=== PATIENT | male | born 1980 | race Caucasian/White ===

== ENCOUNTER 2017-04-15 17:08 | Emergency (ER) | payer SELFPAY ==
[~2017-04-15] VITALS: Ht 175.3 cm; Wt 103.4 kg
[~2017-04-15 17:08] MED LIST: METR-1 PO; ONDA1TAB16 PO; PROM25TA5 PO; ZOFR4TAB3 SL
[2017-04-15 17:11] VITALS: BP 213/132; PULSE 82; RESP 16; TEMP 98; O2SAT 97
[2017-04-15] MEDS ORDERED: SODIUM CHLOR 0.9% 1000 ML INJ 1,000 ML IV SCH (17:15)
[2017-04-15] MEDS ORDERED: ONDANSETRON HCL 4 MG/2 ML VIAL IVP ONE (17:15)
[2017-04-15] MEDS ORDERED: SODIUM CHLORIDE 0.9% FLUSH 10 ML FLUSH IV FLUSH PRN (17:15)
[2017-04-15] MEDS ORDERED: KETOROLAC TROMETHAMINE 30 MG/ML (IVP) VIAL IVP ONE (17:15)
--- NOTE | 2017-04-15 17:24 | PD ---
HPI Chief Complaint: Flank/Kidney Pain Time Seen by Provider: 17:14 Travel History International Travel<30 days: No Contact w/Intl Traveler<30days: No Traveled to known affect area: No History of Present Illness HPI This is a 36-year-old male with a history of diverticulitis and kidney stones who presents for flank pain. He states half an hour ago, he developed left flank pain. It does not radiate. Mild associated nausea without vomiting. He has only urinated a few drops since this happened. No hematuria. No recent fever, chills, cough, congestion, vomiting, diarrhea. He had been otherwise well recently. He states that this feels similar to prior kidney stones. No focal weakness, numbness, tingling, saddle paresthesias, bowel or bladder dysfunction. No fevers, chills, IV drug abuse. Symptoms are moderate in severity. Onset gradual. No prior treatment. No alleviating or aggravating factors. PFSH Past Medical History Hx Anticoagulant Therapy: No Asthma: No Blood Disorders: No Heart Rhythm Problems: No Cancer: No Cardiovascular Problems: No High Cholesterol: Yes Chemotherapy: No Chest Pain: No Congestive Heart Failure: No COPD: No Cerebrovascular Accident: No Diabetes: No Diminished Hearing: No Diverticulitis: Yes Endocrine: No GERD: No Genitourinary: No Headaches: No Hepatitis: No Hiatal Hernia: No Hypertension: No Immune Disorder: No Implanted Vascular Access Dvce: No Kidney Stones: Yes Musculoskeletal: No Neurologic: No Psychiatric: No Reproductive: No Respiratory: No Immunizations Current: No Migraines: No Myocardial Infarction: No Seizures: No Sleep Apnea: No Ulcer: No Influenza Vaccination: No Past Surgical History Appendectomy: No Cholecystectomy: No Neurologic Surgery: No Other Surgery: Yes (CYST REMOVED FROM NECK) Social History Alcohol Use: Yes (12 pack per week) Tobacco Use: Yes (1 ppd) Substance Use: Yes (POT) Allergies-Medications (Allergen,Severity, Reaction): Coded Allergies: diatrizoate meglumine (Unverified Allergy, Intermediate, Rash, 04/15/17) gadobenic acid (Unverified Allergy, Intermediate, Rash, 04/15/17) gadodiamide (Unverified Allergy, Intermediate, Rash, 04/15/17) gadoteridol (Unverified Allergy, Intermediate, Rash, 04/15/17) iodixanol (Unverified Allergy, Intermediate, Rash, 04/15/17) iohexol (Unverified Allergy, Intermediate, Rash, 04/15/17) Reported Meds & Prescriptions Reported Meds & Active Scripts Active Keflex (Cephalexin) 500 Mg Cap 500 Mg PO Q12H 7 Days Flomax (Tamsulosin HCl) 0.4 Mg Cap 0.4 Mg PO DAILY Zofran Odt (Ondansetron Odt) 4 Mg Tab 4 Mg SL Q8HR PRN Fisher (Hydrocodone-Acetaminophen) 5 Mg-325 Mg Tab 1 Tab PO Q6H PRN Review of Systems Except as stated in HPI: all other systems reviewed are Neg Physical Exam Narrative GENERAL: Alert, well nourished, male patient resting on the bed. Vital Signs reviewed SKIN: Focused skin assessment warm/dry. HEAD: Atraumatic. Normocephalic. EYES: Pupils equal and round. No scleral icterus. No injection or drainage. ENT: No nasal bleeding or discharge. Mucous membranes pink and moist. NECK: Trachea midline. No JVD. Spontaneous, painless full range of motion with no meningismus CARDIOVASCULAR: Regular rate and rhythm. No murmur appreciated. Extremities warm and well perfused with bounding peripheral pulses RESPIRATORY: No accessory muscle use. Clear to auscultation. Breath sounds equal bilaterally. Breathing easily and speaking in full sentences GASTROINTESTINAL: Abdomen soft, non-tender, nondistended. Normal bowel sounds. No rigid, rebound, guarding. No CVA tenderness. MUSCULOSKELETAL: No obvious deformities. No clubbing. No cyanosis. No edema. Compartments are soft NEUROLOGICAL: Awake and alert. No obvious cranial nerve deficits. Motor grossly within normal limits. Normal speech. Sensation intact. Normal gait Data Data Last Documented VS Vital Signs Date Time Temp Pulse Resp B/P (MAP) Pulse Ox O2 Delivery O2 Flow Rate FiO2 04/15/17 19:37 102 20 194/129 (150) 95 04/15/17 18:05 Room Air 04/15/17 17:11 98.0 Orders Orders Complete Blood Count With Diff (04/15/17 17:15) Comprehensive Metabolic Panel (04/15/17 17:15) Lipase (04/15/17 17:15) Urinalysis - C+S If Indicated (04/15/17 17:15) Ct Abd/Pel W/O Iv Contrast (04/15/17 17:15) Iv Access Insert/Monitor (04/15/17 17:15) Ondansetron Inj (Zofran Inj) (04/15/17 17:15) Sodium Chlor 0.9% 1000 Ml Inj (Ns 1000 M (04/15/17 17:15) Sodium Chloride 0.9% Flush (Ns Flush) (04/15/17 17:15) Ketorolac Inj (Toradol Inj) (04/15/17 17:15) Morphine Inj (Morphine Inj) (04/15/17 18:00) Urine Culture (04/15/17 18:10) Morphine Inj (Morphine Inj) (04/15/17 19:00) Clonidine (Catapres) (04/15/17 19:00) Ondansetron Inj (Zofran Inj) (04/15/17 19:15) Ed Discharge Order (04/15/17 20:15) Labs Laboratory Tests Test 04/15/17 17:15 04/15/17 18:10 White Blood Count 10.2 TH/MM3 Red Blood Count 5.23 MIL/MM3 Hemoglobin 15.8 GM/DL Hematocrit 46.2 % Mean Corpuscular Volume 88.4 FL Mean Corpuscular Hemoglobin 30.2 PG Mean Corpuscular Hemoglobin Concent 34.2 % Red Cell Distribution Width 11.5 % Platelet Count 314 TH/MM3 Mean Platelet Volume 8.1 FL Neutrophils (%) (Auto) 53.4 % Lymphocytes (%) (Auto) 37.2 % Monocytes (%) (Auto) 7.6 % Eosinophils (%) (Auto) 1.2 % Basophils (%) (Auto) 0.6 % Neutrophils # (Auto) 5.4 TH/MM3 Lymphocytes # (Auto) 3.8 TH/MM3 Monocytes # (Auto) 0.8 TH/MM3 Eosinophils # (Auto) 0.1 TH/MM3 Basophils # (Auto) 0.1 TH/MM3 CBC Comment DIFF FINAL Differential Comment Blood Urea Nitrogen 9 MG/DL Creatinine 1.00 MG/DL Random Glucose 106 MG/DL Total Protein 8.0 GM/DL Albumin 4.0 GM/DL Calcium Level 9.1 MG/DL Alkaline Phosphatase 101 U/L Aspartate Amino Transf (AST/SGOT) 16 U/L Alanine Aminotransferase (ALT/SGPT) 30 U/L Total Bilirubin 0.3 MG/DL Sodium Level 140 MEQ/L Potassium Level 3.7 MEQ/L Chloride Level 105 MEQ/L Carbon Dioxide Level 28.9 MEQ/L Anion Gap 6 MEQ/L Estimat Glomerular Filtration Rate 85 ML/MIN Lipase 148 U/L Urine Collection Type CLEAN CATCH Urine Color RED Urine Turbidity CLOUDY Urine pH 5.5 Urine Specific [place] 1.025 Urine Protein 30 mg/dL Urine Glucose (UA) NEG mg/dL Urine Ketones NEG mg/dL Urine Occult Blood LARGE Urine Nitrite NEG Urine Bilirubin NEG Urine Urobilinogen 0.2 MG/DL Urine Leukocyte Esterase NEG Urine RBC INNUM /hpf Urine WBC 9-14 /hpf Urine Squamous Epithelial Cells 6-8 /hpf Urine Yeast (Budding) MOD Microscopic Urinalysis Comment CULTURE INDICATED Urine Collection Time 18:10 MDM Medical Decision Making Medical Screen Exam Complete: Yes Emergency Medical Condition: Yes Medical Record Reviewed: Yes Interpretation(s) Last 24 hours Impressions Abdomen/Pelvis CT 04/15/17 1715 Signed Impressions: Service Date/Time: April 17:36 - CONCLUSION: 2 mm left ureteral calculus at the level of the L3-4 disc space causing mild hydronephrosis of the left kidney. Edvin Norris MD Laboratory Tests Test 04/15/17 17:15 04/15/17 18:10 White Blood Count 10.2 TH/MM3 Red Blood Count 5.23 MIL/MM3 Hemoglobin 15.8 GM/DL Hematocrit 46.2 % Mean Corpuscular Volume 88.4 FL Mean Corpuscular Hemoglobin 30.2 PG Mean Corpuscular Hemoglobin Concent 34.2 % Red Cell Distribution Width 11.5 % Platelet Count 314 TH/MM3 Mean Platelet Volume 8.1 FL Neutrophils (%) (Auto) 53.4 % Lymphocytes (%) (Auto) 37.2 % Monocytes (%) (Auto) 7.6 % Eosinophils (%) (Auto) 1.2 % Basophils (%) (Auto) 0.6 % Neutrophils # (Auto) 5.4 TH/MM3 Lymphocytes # (Auto) 3.8 TH/MM3 Monocytes # (Auto) 0.8 TH/MM3 Eosinophils # (Auto) 0.1 TH/MM3 Basophils # (Auto) 0.1 TH/MM3 CBC Comment DIFF FINAL Differential Comment Blood Urea Nitrogen 9 MG/DL Creatinine 1.00 MG/DL Random Glucose 106 MG/DL Total Protein 8.0 GM/DL Albumin 4.0 GM/DL Calcium Level 9.1 MG/DL Alkaline Phosphatase 101 U/L Aspartate Amino Transf (AST/SGOT) 16 U/L Alanine Aminotransferase (ALT/SGPT) 30 U/L Total Bilirubin 0.3 MG/DL Sodium Level 140 MEQ/L Potassium Level 3.7 MEQ/L Chloride Level 105 MEQ/L Carbon Dioxide Level 28.9 MEQ/L Anion Gap 6 MEQ/L Estimat Glomerular Filtration Rate 85 ML/MIN Lipase 148 U/L Urine Collection Type CLEAN CATCH Urine Color RED Urine Turbidity CLOUDY Urine pH 5.5 Urine Specific [place] 1.025 Urine Protein 30 mg/dL Urine Glucose (UA) NEG mg/dL Urine Ketones NEG mg/dL Urine Occult Blood LARGE Urine Nitrite NEG Urine Bilirubin NEG Urine Urobilinogen 0.2 MG/DL Urine Leukocyte Esterase NEG Urine RBC INNUM /hpf Urine WBC 9-14 /hpf Urine Squamous Epithelial Cells 6-8 /hpf Urine Yeast (Budding) MOD Microscopic Urinalysis Comment CULTURE INDICATED Urine Collection Time 18:10 Differential Diagnosis Nephrolithiasis, UTI, pyelonephritis, diverticulitis, musculoskeletal pain Narrative Course IV access was established. Labs, imaging were performed. Patient was given IV fluids, nausea and pain medication with improvement in his symptoms. Patient states that he is not typically hypertensive. He has had normal outpatient blood pressures within the last 2 months. He was given a dose of clonidine for hypertension in the emergency department with improvement in BP to 140/82. I do not feel he needs a prescription for outpatient antihypertensives. Upon reexamination 8:15 PM: He is resting comfortably on the bed, drinking fluids without difficulty. He is feeling much better and is eager to be discharged. We discussed plan for discharge with supportive care, Zofran, Keflex, ibuprofen , Fisher, Flomax and close outpatient follow-up with primary physician and urology. Patient understands the importance of close outpatient follow-up. He understands he may require further testing and treatment as an outpatient. He understands strict return indications. He is comfortable with this plan and eager to go home. Diagnosis Primary Impression: Left nephrolithiasis Referrals: Sky Christiansen MD 1 week Patient Instructions: General Instructions, Kidney Stones (DC), Narcotic given in the ED Additional Instructions: Drink plenty of water to stay well hydrated. Take ibuprofen with food for pain. Take Flomax as directed. Take Fisher as needed for severe pain. No alcohol or driving after this medication. Use Zofran for nausea. Follow-up with urologist. Return with fever, vomiting, uncontrolled pain. Med/Other Pt SpecificInfo: Prescription(s) given Scripts Cephalexin (Keflex) 500 Mg Cap 500 MG PO Q12H for Infection for 7 Days, #14 CAP 0 Refills Prov: Amber Dawkins MD 04/15/17 Tamsulosin (Flomax) 0.4 Mg Cap 0.4 MG PO DAILY for Manage Prostate Problems, #7 CAP 0 Refills Prov: Amber Dawkins MD 04/15/17 Ondansetron Odt (Zofran Odt) 4 Mg Tab 4 MG SL Q8HR Y for Nausea/Vomiting, #12 TAB 0 Refills Prov: Amber Dawkins MD 04/15/17 Hydrocodone-Acetaminophen (Fisher) 5 Mg-325 Mg Tab 1 TAB PO Q6H Y for PAIN, #12 TAB 0 Refills Prov: Amber Dawkins MD 04/15/17 Disposition: 01 DISCHARGE HOME Condition: Stable Amber Dawkins MD Apr 15, 2017 17:24
[2017-04-15 17:32] LABS: AUTOMATED NEUTROPHIL # 5.4 TH/MM3 (1.8-7.7); BASOPHIL # 0.1 TH/MM3 (0-0.2); BASOPHIL % 0.6 % (0.0-2.0); EOSINOPHIL # 0.1 TH/MM3 (0-0.4); EOSINOPHIL % 1.2 % (0.0-4.0); HEMATOCRIT 46.2 % (39.0-51.0); HEMOGLOBIN 15.8 GM/DL (13.0-17.0); LYMPH % 37.2 % (9.0-44.0); LYMPHOCYTE # 3.8 TH/MM3 (1.0-4.8); MEAN CELL VOLUME 88.4 FL (80.0-100.0); MEAN CORPUSCULAR HEMOGLOBIN 30.2 PG (27.0-34.0); MEAN CORPUSCULAR HGB CONC 34.2 % (32.0-36.0); MEAN PLATELET VOLUME 8.1 FL (7.0-11.0); MONO % 7.6 % (0.0-8.0); MONOCYTE # 0.8 TH/MM3 (0-0.9); NEUT % 53.4 % (16.0-70.0); PLATELET COUNT 314 TH/MM3 (150-450); RED BLOOD COUNT 5.23 MIL/MM3 (4.50-5.90); RED CELL DISTRIBUTION WIDTH 11.5 % (11.6-17.2); WHITE BLOOD COUNT 10.2 TH/MM3 (4.0-11.0)
[2017-04-15 17:42] LABS: CHLORIDE 105 MEQ/L (98-107); SODIUM (NA) 140 MEQ/L (136-145)
[2017-04-15 17:46] LABS: BICARBONATE 28.9 MEQ/L (21.0-32.0); BLOOD UREA NITROGEN 9 MG/DL (7-18); CALCIUM 9.1 MG/DL (8.5-10.1); GLUCOSE,RANDOM 106 MG/DL (74-106)
[2017-04-15 17:49] LABS: ALT (GPT) 30 U/L (12-78); AST (GOT) 16 U/L (15-37); GLOMERULAR FILTRATION RATE 85 ML/MIN (>89)
--- NOTE | 2017-04-15 17:49 | RADRPT ---
EXAM DATE/TIME: 04/15/2017 17:36 [facility] COMPARISON: CT ABDOMEN & PELVIS W/O CONTRAST, September 21, 2014, 9:54. INDICATIONS : Left flank pain. ORAL CONTRAST: No oral contrast ingested. RADIATION DOSE: 24.57 CTDIvol (mGy) MEDICAL HISTORY : Diverticulitis. Renal calculi. SURGICAL HISTORY : None. ENCOUNTER: Initial ACUITY: 1 day PAIN SCALE: 8/10 LOCATION: Left flank TECHNIQUE: Volumetric scanning of the abdomen and pelvis was performed. Using automated exposure control and ad justment of the mA and/or kV according to patient size, radiation dose was kept as low as reasonably achievable to obtain optimal diagnostic quality images. DICOM format image data is available electro nically for review and comparison. FINDINGS: LOWER LUNGS: The visualized lower lungs are clear. LIVER: Homogeneous density without lesion. There is no dilation of the biliary tree. No calcified gallston es. SPLEEN: Normal size without lesion. PANCREAS: Within normal limits. KIDNEYS: Mild hydronephrosis of the left kidney with a 2 mm left ureteral calculus at the level of the L3-4 di sc space. ADRENAL GLANDS: Within normal limits. VASCULAR: There is no aortic aneurysm. BOWEL/MESENTERY: Colonic diverticulosis . The stomach, small bowel, and colon demonstrate no acute abnormality. Ther e is no free intraperitoneal air or fluid. ABDOMINAL WALL: Within normal limits. RETROPERITONEUM: There is no lymphadenopathy. BLADDER: No wall thickening or mass. REPRODUCTIVE: Within normal limits. INGUINAL: There is no lymphadenopathy or hernia. MUSCULOSKELETAL: Within normal limits for patient age. CONCLUSION: 2 mm left ureteral calculus at the level of the L3-4 disc space causing mild hydronephrosis of the le ft kidney. Edvin Norris MD on April 15, 2017 at 17:46 Board Certified Radiologist. This report was verified electronically.
[2017-04-15 17:51] LABS: TOTAL BILIRUBIN ADULT 0.3 MG/DL (0.2-1.0)
[2017-04-15 17:52] LABS: ALKALINE PHOSPHATASE 101 U/L (45-117)
[2017-04-15] MEDS ORDERED: NORC5TAB PO (18:00)
[2017-04-15] MEDS ORDERED: ZOFR4TAB3 SL (18:00)
[2017-04-15] MEDS ORDERED: MORPHINE SULFATE 4 MG/ML INJ IV PUSH ONE ×2 (18:00→19:00)
[2017-04-15] MEDS ORDERED: TAMS5CAP PO (18:00)
[2017-04-15 18:05] VITALS: BP 190/107; PULSE 82; RESP 18; O2SAT 98
[2017-04-15 18:22] LABS: BILIRUBIN, URINE NEG (NEG); BLOOD, URINE LARGE (NEG); GLUCOSE,URINE NEG (NEG); KETONE, URINE NEG (NEG); NITRITE,URINE NEG (NEG); PH, URINE 5.5 (5.0-8.5); URINE COLOR RED (YELLW/STRAW); URINE LEUKOCYTE ESTERASE NEG (NEG)
[2017-04-15 18:25] LABS: RBC, URINE INNUM /hpf (0-3)
[2017-04-15] MEDS ORDERED: cloNIDine HCL 0.1 MG TAB PO ONE (19:00)
[2017-04-15] MEDS ORDERED: ONDANSETRON HCL 4 MG/2 ML VIAL IV PUSH ONE (19:15)
[2017-04-15] MEDS ORDERED: CEPH-460 PO (19:21)
[2017-04-15 19:37] VITALS: BP 194/129; PULSE 102; RESP 20; O2SAT 95
[2017-04-15 20:19] VITALS: BP 140/82
== END 2017-04-15 20:28 | disposition home or self-care (01) ==
LOC: PHED 17:08
DX: N20.0 Calculus of kidney (principal); N39.0 Urinary tract infection, site not specified; B96.89 Other specified bacterial agents as the cause of diseases classified elsewhere; E78.00 Pure hypercholesterolemia, unspecified; F17.210 Nicotine dependence, cigarettes, uncomplicated; Z88.8 Allergy status to other drugs, medicaments and biological substances
CPT/HCPCS: 74176; 80053; 81001; 83690; 85025; 87086; 96361; 96374; 96375; 99284; J1885; J2270; J2405; J7030

== ENCOUNTER 2017-07-10 16:32 | Emergency (ER) | payer SELFPAY ==
[~2017-07-10] VITALS: Ht 175.3 cm; Wt 101.5 kg
[~2017-07-10 16:32] MED LIST changes: +CEPH-460 PO; -METR-1 PO; +NORC5TAB PO; -ONDA1TAB16 PO; -PROM25TA5 PO; +TAMS5CAP PO
[2017-07-10 16:33] VITALS: BP 170/103; PULSE 88; RESP 16; TEMP 98.9; O2SAT 96
[2017-07-10 17:01] VITALS: RESP 16; O2SAT 97
[2017-07-10] MEDS ORDERED: FIBE625T10 PO (17:03)
--- NOTE | 2017-07-10 17:11 | PD ---
HPI Chief Complaint: Abdominal Pain Time Seen by Provider: 16:46 Travel History International Travel<30 days: No Contact w/Intl Traveler<30days: No Traveled to known affect area: No History of Present Illness HPI 36-year-old male complains of low abdominal pain. Patient states that the pain started yesterday. Patient states the pain and cramping pain localized to lower abdomen. Patient denies any pain radiation. Patient has history of diverticulitis in the past. Patient denies any fever chills. Patient denies any nausea vomiting diarrhea. Patient denies any dysuria frequency. Patient states that the pain radiates to the back. On a scale of 1-10 the pain is a 5. PFSH Past Medical History Hx Anticoagulant Therapy: No Cancer: No Diminished Hearing: No Diverticulitis: Yes Endocrine: No Kidney Stones: Yes Immunizations Current: No Tetanus Vaccination: > 5 Years Influenza Vaccination: No ?: Not Past Surgical History Appendectomy: No Cholecystectomy: No Neurologic Surgery: No Other Surgery: Yes (CYST REMOVED FROM NECK, [place] area) Social History Alcohol Use: Yes (occas beer) Tobacco Use: Yes (1 ppd) Substance Use: Yes (states smokes "weed") Allergies-Medications (Allergen,Severity, Reaction): Coded Allergies: diatrizoate meglumine (Unverified Allergy, Intermediate, Rash, 07/10/17) gadobenic acid (Unverified Allergy, Intermediate, Rash, 07/10/17) gadodiamide (Unverified Allergy, Intermediate, Rash, 07/10/17) gadoteridol (Unverified Allergy, Intermediate, Rash, 07/10/17) iodixanol (Unverified Allergy, Intermediate, Rash, 07/10/17) iohexol (Unverified Allergy, Intermediate, Rash, 07/10/17) Reported Meds & Prescriptions Reported Meds & Active Scripts Active Ultram (Tramadol HCl) 50 Mg Tab 50 Mg PO Q6H PRN Cipro (Ciprofloxacin HCl) 500 Mg Tab 500 Mg PO BID Flagyl (Metronidazole) 500 Mg Tab 500 Mg PO TID Reported Fiber (Calcium Polycarbophil) 625 Mg Tab 625 Mg PO DAILY PRN Review of Systems General / Constitutional: No: Fever Eyes: No: Visual changes HENT: No: Headaches Cardiovascular: No: Chest Pain or Discomfort Respiratory: No: Shortness of Breath Gastrointestinal: Positive: Abdominal Pain Genitourinary: No: Dysuria Musculoskeletal: No: Pain Skin: No Rash Neurologic: No: Weakness Psychiatric: No: Depression Endocrine: No: Polydipsia Hematologic/Lymphatic: No: Easy Bruising Physical Exam Narrative GENERAL: Well-nourished, well-developed patient. SKIN: Focused skin assessment warm/dry. HEAD: Normocephalic. EYES: No scleral icterus. No injection or drainage. NECK: Supple, trachea midline. No JVD or lymphadenopathy. CARDIOVASCULAR: Regular rate and rhythm without murmurs, gallops, or rubs. RESPIRATORY: Breath sounds equal bilaterally. No accessory muscle use. GASTROINTESTINAL: Abdomen soft, nondistended. Patient has mild tenderness on palpation lower abdomen. No rebound tenderness. No mass. MUSCULOSKELETAL: No cyanosis, or edema. BACK: Nontender without obvious deformity. No CVA tenderness. Neurologic exam normal. Data Data Last Documented VS Vital Signs Date Time Temp Pulse Resp B/P (MAP) Pulse Ox O2 Delivery O2 Flow Rate FiO2 07/10/17 18:55 16 07/10/17 17:42 92 155/93 (113) 97 Room Air 07/10/17 16:33 98.9 Orders Orders Complete Blood Count With Diff (07/10/17 16:52) Comprehensive Metabolic Panel (07/10/17 16:52) Lipase (07/10/17 16:52) Urinalysis - C+S If Indicated (07/10/17 16:52) Iv Access Insert/Monitor (07/10/17 16:52) Ecg Monitoring (07/10/17 16:52) Oximetry (07/10/17 16:52) Ct Abd/Pel W/O Iv Contrast (07/10/17 17:04) Ketorolac Inj (Toradol Inj) (07/10/17 17:30) Ondansetron Odt (Zofran Odt) (07/10/17 17:30) Metronidazole 500 Mg Inj (Flagyl 500 Mg (07/10/17 17:45) Levofloxacin (Levaquin) (07/10/17 17:45) Ed Discharge Order (07/10/17 19:19) Labs Laboratory Tests Test 07/10/17 17:35 07/10/17 17:55 White Blood Count 14.6 TH/MM3 Red Blood Count 5.34 MIL/MM3 Hemoglobin 17.0 GM/DL Hematocrit 47.4 % Mean Corpuscular Volume 88.7 FL Mean Corpuscular Hemoglobin 31.7 PG Mean Corpuscular Hemoglobin Concent 35.8 % Red Cell Distribution Width 12.1 % Platelet Count 262 TH/MM3 Mean Platelet Volume 8.5 FL Neutrophils (%) (Auto) 80.1 % Lymphocytes (%) (Auto) 12.6 % Monocytes (%) (Auto) 6.4 % Eosinophils (%) (Auto) 0.4 % Basophils (%) (Auto) 0.5 % Neutrophils # (Auto) 11.7 TH/MM3 Lymphocytes # (Auto) 1.8 TH/MM3 Monocytes # (Auto) 0.9 TH/MM3 Eosinophils # (Auto) 0.1 TH/MM3 Basophils # (Auto) 0.1 TH/MM3 CBC Comment AUTO DIFF Differential Comment AUTO DIFF CONFIRMED Platelet Estimate NORMAL Platelet Morphology Comment NORMAL Blood Urea Nitrogen 9 MG/DL Creatinine 0.94 MG/DL Random Glucose 96 MG/DL Total Protein 7.9 GM/DL Albumin 3.8 GM/DL Calcium Level 9.3 MG/DL Alkaline Phosphatase 95 U/L Aspartate Amino Transf (AST/SGOT) 10 U/L Alanine Aminotransferase (ALT/SGPT) 22 U/L Total Bilirubin 1.2 MG/DL Sodium Level 138 MEQ/L Potassium Level 3.8 MEQ/L Chloride Level 104 MEQ/L Carbon Dioxide Level 25.7 MEQ/L Anion Gap 8 MEQ/L Estimat Glomerular Filtration Rate 91 ML/MIN Lipase 61 U/L Urine Color YELLOW Urine Turbidity CLEAR Urine pH 6.0 Urine Specific [place] GREATER/EQUAL 1.030 Urine Protein TRACE mg/dL Urine Glucose (UA) NEG mg/dL Urine Ketones 40 mg/dL Urine Occult Blood NEG Urine Nitrite NEG Urine Bilirubin NEG Urine Urobilinogen 1.0 MG/DL Urine Leukocyte Esterase NEG Urine RBC 0-2 /hpf Urine WBC 0-2 /hpf Urine Squamous Epithelial Cells 6-8 /hpf Urine Bacteria NONE /hpf Microscopic Urinalysis Comment CULT NOT INDICATED MDM Medical Decision Making Medical Screen Exam Complete: Yes Emergency Medical Condition: Yes Interpretation(s) Last Impressions Abdomen/Pelvis CT 07/10/17 4664 Signed Impressions: CONCLUSION: 1. Segmental wall thickening with associated diverticula and pericolonic infla mmation in the proximal sigmoid colon characteristic of acute diverticulitis. 2. No evidence of abscess, free air or significant ileus. Differential Diagnosis Differential diagnosis including UTI, pyelonephritis, nephrolithiasis, colitis, prostatitis, appendicitis. Narrative Course 36-year-old male complains of low abdominal pain. History of diverticulitis. Diagnosis Primary Impression: Acute diverticulitis Patient Instructions: General Instructions Additional Instructions: Take medications as directed. Follow-up with personal physician. Return if worse. 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 Med/Other Pt SpecificInfo: Prescription(s) given Scripts Ondansetron Odt (Zofran Odt) 4 Mg Tab 4 MG SL Q6HR Y for Nausea/Vomiting, #10 TAB 0 Refills Prov: Marty Pritchard MD 07/10/17 Tramadol (Ultram) 50 Mg Tab 50 MG PO Q6H Y for PAIN, #12 TAB 0 Refills Prov: Marty Pritchard MD 07/10/17 Ciprofloxacin (Cipro) 500 Mg Tab 500 MG PO BID for Infection, #20 TAB 0 Refills Prov: Marty Pritchard MD 07/10/17 Metronidazole (Flagyl) 500 Mg Tab 500 MG PO TID for Infection, #30 TAB 0 Refills Prov: Marty Pritchard MD 07/10/17 Disposition: 01 DISCHARGE HOME Condition: Stable Marty Pritchard MD July 10, 2017 17:11
[2017-07-10] MEDS ORDERED: KETOROLAC TROMETHAMINE 30 MG/ML (IVP) VIAL IV PUSH ONE (17:30)
[2017-07-10] MEDS ORDERED: ONDANSETRON ODT 4 MG TAB PO ONE (17:30)
--- NOTE | 2017-07-10 17:36 | RADRPT ---
EXAM DATE: 07/10/2017 5:26 PM EDT AGE/SEX: 36 years / Male INDICATIONS: Lower abdomen pain for two days. CLINICAL DATA: This is the patient's initial encounter. Patient reports that signs and symptoms have been present for 2 days and indicates a pain score of 7/10. MEDICAL/SURGICAL HISTORY: Diverticulitis. Renal calculi. None. RADIATION DOSE: 22.78 CTDI (mGy) ; Patient body habitus COMPARISON: [facility], CT ABDOMEN & PELVIS W/O CONTRAST, 04/15/2017. . TECHNIQUE: Multiple contiguous axial images were obtained through the abdomen. Images were obtained using multiple row detector helical technique. Using dose reduction techniques, radiation dose was ke pt as low as reasonably achievable to obtain optimal diagnostic quality images. FINDINGS: Lower Lungs: The visualized lower lungs are clear. Liver: The liver has a homogeneous density without space-occupying lesion. There is no dilation of th e biliary tree. Spleen: Homogeneous density without enlargement. Pancreas: Unremarkable without mass or calcification. Kidneys: Normal in size and shape. No evidence of mass or hydronephrosis. Adrenal Glands: Unremarkable. Aorta: The aorta and proximal iliac vessels are grossly unremarkable without aneurysmal dilation. Bowel/Mesentery: Focal segmental wall thickening with pericolonic inflammation is identified in the proximal sigmoid colon. There are small diverticula present identified adjacent to this area. There i s no evidence of extra intestinal fluid collections or free air. Intestinal tract is otherwise unrema rkable. There is no significant distention. Abdominal Wall: Intact. Retroperitoneum: No evidence of adenopathy in the retrocrural, para-aortic, or deep pelvic regions. Bladder: Contours are smooth. Reproductive Organs: No abnormal masses or calcifications seen. Inguinal: The inguinal region is unremarkable without evidence of adenopathy. Bony Structures: Unremarkable. CONCLUSION: 1. Segmental wall thickening with associated diverticula and pericolonic inflammation in the proxima l sigmoid colon characteristic of acute diverticulitis. 2. No evidence of abscess, free air or significant ileus. Electronically signed by: Chencho Ervin MD 07/10/2017 5:35 PM EDT
[2017-07-10 17:42] VITALS: BP 155/93; PULSE 92; RESP 16; O2SAT 97
[2017-07-10] MEDS ORDERED: LEVOFLOXACIN 750 MG TAB PO ONE (17:45)
[2017-07-10] MEDS ORDERED: metroNIDAZOLE 500 MG INJ 100 ML IV ONE (17:45)
[2017-07-10 17:47] LABS: AUTOMATED NEUTROPHIL # 11.7 TH/MM3 (1.8-7.7); BASOPHIL # 0.1 TH/MM3 (0-0.2); BASOPHIL % 0.5 % (0.0-2.0); EOSINOPHIL # 0.1 TH/MM3 (0-0.4); EOSINOPHIL % 0.4 % (0.0-4.0); HEMATOCRIT 47.4 % (39.0-51.0); LYMPH % 12.6 % (9.0-44.0); LYMPHOCYTE # 1.8 TH/MM3 (1.0-4.8); MEAN CELL VOLUME 88.7 FL (80.0-100.0); MEAN CORPUSCULAR HEMOGLOBIN 31.7 PG (27.0-34.0); MEAN CORPUSCULAR HGB CONC 35.8 % (32.0-36.0); MEAN PLATELET VOLUME 8.5 FL (7.0-11.0); MONO % 6.4 % (0.0-8.0); MONOCYTE # 0.9 TH/MM3 (0-0.9); NEUT % 80.1 % (16.0-70.0); PLATELET COUNT 262 TH/MM3 (150-450); RED BLOOD COUNT 5.34 MIL/MM3 (4.50-5.90); RED CELL DISTRIBUTION WIDTH 12.1 % (11.6-17.2); WHITE BLOOD COUNT 14.6 TH/MM3 (4.0-11.0)
[2017-07-10] MEDS ORDERED: TRAM50 PO (17:47)
[2017-07-10] MEDS ORDERED: METR-1 PO (17:47)
[2017-07-10] MEDS ORDERED: CIPR-9 PO (17:47)
[2017-07-10 18:06] LABS: BLOOD, URINE NEG (NEG); GLUCOSE,URINE NEG (NEG); KETONE, URINE 40 mg/dL (NEG); NITRITE,URINE NEG (NEG); URINE COLOR YELLOW (YELLW/STRAW); URINE LEUKOCYTE ESTERASE NEG (NEG)
[2017-07-10 18:10] LABS: BILIRUBIN, URINE NEG (NEG)
[2017-07-10 18:15] LABS: RBC, URINE 0-2 /hpf (0-3); WBC, URINE 0-2 /hpf (0-5)
[2017-07-10 18:17] LABS: CHLORIDE 104 MEQ/L (98-107); SODIUM (NA) 138 MEQ/L (136-145)
[2017-07-10 18:20] LABS: CALCIUM 9.3 MG/DL (8.5-10.1)
[2017-07-10 18:21] LABS: ALBUMIN 3.8 GM/DL (3.4-5.0); BICARBONATE 25.7 MEQ/L (21.0-32.0); BLOOD UREA NITROGEN 9 MG/DL (7-18); GLUCOSE,RANDOM 96 MG/DL (74-106)
[2017-07-10 18:24] LABS: ALT (GPT) 22 U/L (12-78); AST (GOT) 10 U/L (15-37); CREATININE 0.94 MG/DL (0.60-1.30); GLOMERULAR FILTRATION RATE 91 ML/MIN (>89)
[2017-07-10 18:25] LABS: TOTAL BILIRUBIN ADULT 1.2 MG/DL (0.2-1.0); TOTAL PROTEIN 7.9 GM/DL (6.4-8.2)
[2017-07-10 18:27] LABS: ALKALINE PHOSPHATASE 95 U/L (45-117)
[2017-07-10 18:55] VITALS: RESP 16
[2017-07-10] MEDS ORDERED: ZOFR4TAB3 SL (19:20)
[2017-07-10 19:29] VITALS: BP 154/88
== END 2017-07-10 19:31 | disposition home or self-care (01) ==
LOC: PHED 16:32
DX: K57.92 Diverticulitis of intestine, part unspecified, without perforation or abscess without bleeding (principal); F17.200 Nicotine dependence, unspecified, uncomplicated; F12.90 Cannabis use, unspecified, uncomplicated
CPT/HCPCS: 74176; 80053; 81001; 83690; 85025; 96365; 96375; 99284; J1885

== ENCOUNTER 2017-07-16 18:02 | Observation (INO) | payer SELFPAY ==
[~2017-07-16] VITALS: Ht 175.3 cm; Wt 100.0 kg
[~2017-07-16 18:02] MED LIST changes: -CEPH-460 PO; +CIPR-9 PO; +FIBE625T10 PO; +METR-1 PO; -NORC5TAB PO; -TAMS5CAP PO; +TRAM50 PO
[2017-07-16 18:06] VITALS: BP 175/93; PULSE 102; RESP 18; TEMP 98.5; O2SAT 95
--- NOTE | 2017-07-16 18:15 | PD ---
HPI Chief Complaint: GI Complaint Time Seen by Provider: 18:14 Travel History International Travel<30 days: No Contact w/Intl Traveler<30days: No Traveled to known affect area: No History of Present Illness HPI 36-year-old male came to the emergency room with history of abdominal pain, nausea and vomiting. Patient was seen in the emergency room about 1 week ago. He was diagnosed with acute diverticulitis that patient has a history of. He was discharged home on Cipro and Flagyl. Patient says that he has been unable to keep more than half the dose down because he has been throwing up. Thinks it is the Flagyl that makes him vomit. Patient was slightly tachycardic in triage. The patient is in the left lower quadrant. He says since last night the pain is started to get worse. Patient was afebrile in triage. The pain comes and goes. Gets worse upon eating. No radiation of the pain. PFSH Past Medical History Narrative Medical List of his past medical, surgical, social and family history is reviewed from the nursing note. Hx Anticoagulant Therapy: No Cancer: No Diminished Hearing: No Diverticulitis: Yes Endocrine: No Kidney Stones: Yes Immunizations Current: No Past Surgical History Appendectomy: No Cholecystectomy: No Neurologic Surgery: No Other Surgery: Yes (CYST REMOVED FROM NECK, qamar area) Social History Alcohol Use: Yes (occas beer) Tobacco Use: Yes (1 ppd) Substance Use: Yes (states smokes "weed") Allergies-Medications (Allergen,Severity, Reaction): Coded Allergies: diatrizoate meglumine (Unverified Allergy, Intermediate, Rash, 07/16/17) gadobenic acid (Unverified Allergy, Intermediate, Rash, 07/16/17) gadodiamide (Unverified Allergy, Intermediate, Rash, 07/16/17) gadoteridol (Unverified Allergy, Intermediate, Rash, 07/16/17) iodixanol (Unverified Allergy, Intermediate, Rash, 07/16/17) iohexol (Unverified Allergy, Intermediate, Rash, 07/16/17) Comments List of his allergies reviewed from the nursing note Reported Meds & Prescriptions Reported Meds & Active Scripts Active Cipro (Ciprofloxacin HCl) 500 Mg Tab 500 Mg PO BID 7 Days Flagyl (Metronidazole) 500 Mg Tab 500 Mg PO TID 7 Days Zofran Odt (Ondansetron Odt) 4 Mg Tab 4 Mg SL Q6HR PRN 3 Days Cipro (Ciprofloxacin HCl) 500 Mg Tab 500 Mg PO BID Flagyl (Metronidazole) 500 Mg Tab 500 Mg PO TID Narrative Medication List of his home medications reviewed from the nursing note. Review of Systems Except as stated in HPI: all other systems reviewed are Neg Gastrointestinal: Positive: Nausea, Vomiting, Abdominal Pain Physical Exam Narrative GENERAL: Awake, alert, mild distress SKIN: Focused skin assessment warm/dry. HEAD: Atraumatic. Normocephalic. EYES: Pupils equal and round. No scleral icterus. No injection or drainage. ENT: No nasal bleeding or discharge. Mucous membranes pink and moist. NECK: Trachea midline. No JVD. CARDIOVASCULAR: Regular rate and rhythm. No murmur appreciated. RESPIRATORY: No accessory muscle use. Clear to auscultation. Breath sounds equal bilaterally. GASTROINTESTINAL: Abdomen soft, left lower quadrant tenderness, nondistended. Hepatic and splenic margins not palpable. MUSCULOSKELETAL: No obvious deformities. No clubbing. No cyanosis. No edema. NEUROLOGICAL: Awake and alert. No obvious cranial nerve deficits. Motor grossly within normal limits. Normal speech. PSYCHIATRIC: Appropriate mood and affect; insight and judgment normal. Data Data Last Documented VS Vital Signs Date Time Temp Pulse Resp B/P (MAP) Pulse Ox O2 Delivery O2 Flow Rate FiO2 07/16/17 21:40 16 07/16/17 21:35 98.0 78 161/95 (117) 97 Room Air Orders Orders Urinalysis - C+S If Indicated (07/16/17 18:07) Complete Blood Count With Diff (07/16/17 18:16) Comprehensive Metabolic Panel (07/16/17 18:16) Lipase (07/16/17 18:16) Iv Access Insert/Monitor (07/16/17 18:16) Ecg Monitoring (07/16/17 18:16) Oximetry (07/16/17 18:16) Sodium Chlor 0.9% 1000 Ml Inj (Ns 1000 M (07/16/17 18:16) Sodium Chloride 0.9% Flush (Ns Flush) (07/16/17 18:30) Blood Culture (07/16/17 18:21) Ciprofloxacin 400 Mg Premix (Cipro 400 M (07/16/17 18:30) Metronidazole 500 Mg Inj (Flagyl 500 Mg (07/16/17 18:30) Ondansetron Inj (Zofran Inj) (07/16/17 19:15) Ketorolac Inj (Toradol Inj) (07/16/17 19:15) Urine Culture (07/16/17 18:45) Ct Abd/Pel W/O Iv Contrast (07/16/17 19:58) Prochlorperazine Inj (Compazine Inj) (07/16/17 20:30) Admit Order (Ed Use Only) (07/16/17 21:45) Ciprofloxacin 400 Mg Premix (Cipro 400 M (07/17/17 06:00) Metronidazole 500 Mg Inj (Flagyl 500 Mg (07/17/17 02:00) Prochlorperazine Inj (Compazine Inj) (07/16/17 21:45) Place In Observation (07/16/17 ) Vital Signs (Adult) Q4H (07/16/17 21:40) Activity Oob With Assistance (07/16/17 21:40) Sodium Chlor 0.9% 1000 Ml Inj (Ns 1000 M (07/16/17 21:40) Sodium Chloride 0.9% Flush (Ns Flush) (07/16/17 21:45) Sodium Chloride 0.9% Flush (Ns Flush) (07/17/17 09:00) Acetaminophen (Tylenol) (07/16/17 21:45) Ondansetron Inj (Zofran Inj) (07/16/17 21:45) Naloxone Inj (Narcan Inj) (07/16/17 21:45) Docusate Sodium-Senna (Leeanna-Colace) (07/17/17 09:00) Magnesium Hydroxide Liq (Milk Of Magnesi (07/16/17 21:45) Sennosides (Senokot) (07/16/17 21:45) Bisacodyl Supp (Dulcolax Supp) (07/16/17 21:45) Lactulose Liq (Lactulose Liq) (07/16/17 21:45) Labs Laboratory Tests Test 07/16/17 18:30 07/16/17 18:45 White Blood Count 14.6 TH/MM3 Red Blood Count 5.21 MIL/MM3 Hemoglobin 15.7 GM/DL Hematocrit 45.8 % Mean Corpuscular Volume 88.0 FL Mean Corpuscular Hemoglobin 30.1 PG Mean Corpuscular Hemoglobin Concent 34.2 % Red Cell Distribution Width 11.3 % Platelet Count 308 TH/MM3 Mean Platelet Volume 8.3 FL Neutrophils (%) (Auto) 78.4 % Lymphocytes (%) (Auto) 15.1 % Monocytes (%) (Auto) 5.8 % Eosinophils (%) (Auto) 0.2 % Basophils (%) (Auto) 0.5 % Neutrophils # (Auto) 11.5 TH/MM3 Lymphocytes # (Auto) 2.2 TH/MM3 Monocytes # (Auto) 0.8 TH/MM3 Eosinophils # (Auto) 0.0 TH/MM3 Basophils # (Auto) 0.1 TH/MM3 CBC Comment DIFF FINAL Differential Comment Blood Urea Nitrogen 10 MG/DL Creatinine 1.10 MG/DL Random Glucose 102 MG/DL Total Protein 7.8 GM/DL Albumin 3.7 GM/DL Calcium Level 9.1 MG/DL Alkaline Phosphatase 80 U/L Aspartate Amino Transf (AST/SGOT) 21 U/L Alanine Aminotransferase (ALT/SGPT) 28 U/L Total Bilirubin 0.7 MG/DL Sodium Level 138 MEQ/L Potassium Level 3.7 MEQ/L Chloride Level 104 MEQ/L Carbon Dioxide Level 26.5 MEQ/L Anion Gap 8 MEQ/L Estimat Glomerular Filtration Rate 76 ML/MIN Lipase 113 U/L Urine Color ORANGE Urine Turbidity CLEAR Urine pH 5.5 Urine Specific [place] GREATER/EQUAL 1.030 Urine Protein 30 mg/dL Urine Glucose (UA) NEG mg/dL Urine Ketones 15 mg/dL Urine Occult Blood NEG Urine Nitrite POS Urine Bilirubin NEG Urine Urobilinogen 0.2 MG/DL Urine Leukocyte Esterase TRACE Urine RBC 0-3 /hpf Urine WBC 9-14 /hpf Urine Squamous Epithelial Cells 0-5 /hpf Urine Bacteria MANY /hpf Microscopic Urinalysis Comment CULTURE INDICATED MDM Medical Decision Making Medical Screen Exam Complete: Yes Emergency Medical Condition: Yes Medical Record Reviewed: Yes Differential Diagnosis Diverticulitis with abscess, acute gastritis, outpatient treatment failure Narrative Course 6:26 PM awaiting for blood test result. I have ordered a CT again since patient is an outpatient treatment failure and I would like to make sure that he does not have a diverticular abscess. I have ordered for IV antibiotics. 6:50 PM awaiting for the blood test and CAT scan report. Case will be signed over to the oncoming ER physician. Procedures EKG Prior to Arrival: No Scripts Ciprofloxacin (Cipro) 500 Mg Tab 500 MG PO BID for Infection for 7 Days, #14 TAB 0 Refills Prov: Marci Malhotra MD 07/16/17 Metronidazole (Flagyl) 500 Mg Tab 500 MG PO TID for Infection for 7 Days, TAB 0 Refills Prov: Marci Malhotra MD 07/16/17 Ondansetron Odt (Zofran Odt) 4 Mg Tab 4 MG SL Q6HR Y for Nausea/Vomiting for 3 Days, #12 TAB 0 Refills Prov: Marci Malhotra MD 07/16/17 Abida Rico MD Jul 16, 2017 18:15
[2017-07-16] MEDS ORDERED: SODIUM CHLOR 0.9% 1000 ML INJ 1,000 ML IV SCH ×2 (18:16→21:40)
[2017-07-16 18:22] VITALS: O2SAT 97
[2017-07-16] MEDS ORDERED: SODIUM CHLORIDE 0.9% FLUSH 10 ML FLUSH IV FLUSH PRN ×2 (18:30→21:45)
[2017-07-16] MEDS ORDERED: metroNIDAZOLE 500 MG INJ 100 ML IV ONE (18:30)
[2017-07-16] MEDS ORDERED: CIPROFLOXACIN 400 MG PREMIX 200 ML IV ONE (18:30)
[2017-07-16 18:59] LABS: BLOOD, URINE NEG (NEG); GLUCOSE,URINE NEG (NEG); KETONE, URINE 15 mg/dL (NEG); NITRITE,URINE POS (NEG); PH, URINE 5.5 (5.0-8.5); URINE LEUKOCYTE ESTERASE TRACE (NEG)
[2017-07-16 19:03] LABS: AUTOMATED NEUTROPHIL # 11.5 TH/MM3 (1.8-7.7); BASOPHIL # 0.1 TH/MM3 (0-0.2); BASOPHIL % 0.5 % (0.0-2.0); EOSINOPHIL % 0.2 % (0.0-4.0); HEMATOCRIT 45.8 % (39.0-51.0); HEMOGLOBIN 15.7 GM/DL (13.0-17.0); LYMPH % 15.1 % (9.0-44.0); LYMPHOCYTE # 2.2 TH/MM3 (1.0-4.8); MEAN CORPUSCULAR HEMOGLOBIN 30.1 PG (27.0-34.0); MEAN CORPUSCULAR HGB CONC 34.2 % (32.0-36.0); MEAN PLATELET VOLUME 8.3 FL (7.0-11.0); MONO % 5.8 % (0.0-8.0); MONOCYTE # 0.8 TH/MM3 (0-0.9); NEUT % 78.4 % (16.0-70.0); PLATELET COUNT 308 TH/MM3 (150-450); RED BLOOD COUNT 5.21 MIL/MM3 (4.50-5.90); RED CELL DISTRIBUTION WIDTH 11.3 % (11.6-17.2); WHITE BLOOD COUNT 14.6 TH/MM3 (4.0-11.0)
[2017-07-16 19:05] VITALS: BP 167/96; PULSE 88; RESP 18; O2SAT 97
[2017-07-16] MEDS ORDERED: KETOROLAC TROMETHAMINE 30 MG/ML (IVP) VIAL IV PUSH ONE (19:15)
[2017-07-16] MEDS ORDERED: ONDANSETRON HCL 4 MG/2 ML VIAL IV PUSH ONE (19:15)
[2017-07-16 19:17] LABS: URINE COLOR ORANGE (YELLW/STRAW)
[2017-07-16 19:18] LABS: BILIRUBIN, URINE NEG (NEG)
[2017-07-16 19:26] LABS: CHLORIDE 104 MEQ/L (98-107); SODIUM (NA) 138 MEQ/L (136-145)
[2017-07-16 19:30] LABS: ALBUMIN 3.7 GM/DL (3.4-5.0); BICARBONATE 26.5 MEQ/L (21.0-32.0); BLOOD UREA NITROGEN 10 MG/DL (7-18); CALCIUM 9.1 MG/DL (8.5-10.1); GLUCOSE,RANDOM 102 MG/DL (74-106)
[2017-07-16 19:33] LABS: ALT (GPT) 28 U/L (12-78); AST (GOT) 21 U/L (15-37); GLOMERULAR FILTRATION RATE 76 ML/MIN (>89)
--- NOTE | 2017-07-16 19:34 | PD ---
Physical Exam Narrative Please see Dr. Valdovinos's note for full history and physical. Patient recently diagnosed with diverticulitis and discharged with Cipro and Flagyl. Presents to the emergency department complaining of vomiting and abdominal pain. Was afebrile slightly tachycardic remaining vital signs stable. On exam his left lower quadrant tenderness to palpation. She was given Zofran for nausea/ vomiting and Toradol for pain as well as IV Cipro and Flagyl. Signout from Dr. Rico is waiting for CT scan and labs. 2026: Patient complaining of nausea. Will give 10 mg IV Compazine. Labs show leukocytosis, urinary tract infection, blood and urine cultures pending. Data Data Last Documented VS Vital Signs Date Time Temp Pulse Resp B/P (MAP) Pulse Ox O2 Delivery O2 Flow Rate FiO2 07/16/17 21:40 16 07/16/17 21:35 98.0 78 161/95 (117) 97 Room Air Orders Orders Urinalysis - C+S If Indicated (07/16/17 18:07) Complete Blood Count With Diff (07/16/17 18:16) Comprehensive Metabolic Panel (07/16/17 18:16) Lipase (07/16/17 18:16) Iv Access Insert/Monitor (07/16/17 18:16) Ecg Monitoring (07/16/17 18:16) Oximetry (07/16/17 18:16) Sodium Chlor 0.9% 1000 Ml Inj (Ns 1000 M (07/16/17 18:16) Sodium Chloride 0.9% Flush (Ns Flush) (07/16/17 18:30) Blood Culture (07/16/17 18:21) Ciprofloxacin 400 Mg Premix (Cipro 400 M (07/16/17 18:30) Metronidazole 500 Mg Inj (Flagyl 500 Mg (07/16/17 18:30) Ondansetron Inj (Zofran Inj) (07/16/17 19:15) Ketorolac Inj (Toradol Inj) (07/16/17 19:15) Urine Culture (07/16/17 18:45) Ct Abd/Pel W/O Iv Contrast (07/16/17 19:58) Prochlorperazine Inj (Compazine Inj) (07/16/17 20:30) Admit Order (Ed Use Only) (07/16/17 21:43) Labs Laboratory Tests Test 07/16/17 18:30 07/16/17 18:45 White Blood Count 14.6 TH/MM3 Red Blood Count 5.21 MIL/MM3 Hemoglobin 15.7 GM/DL Hematocrit 45.8 % Mean Corpuscular Volume 88.0 FL Mean Corpuscular Hemoglobin 30.1 PG Mean Corpuscular Hemoglobin Concent 34.2 % Red Cell Distribution Width 11.3 % Platelet Count 308 TH/MM3 Mean Platelet Volume 8.3 FL Neutrophils (%) (Auto) 78.4 % Lymphocytes (%) (Auto) 15.1 % Monocytes (%) (Auto) 5.8 % Eosinophils (%) (Auto) 0.2 % Basophils (%) (Auto) 0.5 % Neutrophils # (Auto) 11.5 TH/MM3 Lymphocytes # (Auto) 2.2 TH/MM3 Monocytes # (Auto) 0.8 TH/MM3 Eosinophils # (Auto) 0.0 TH/MM3 Basophils # (Auto) 0.1 TH/MM3 CBC Comment DIFF FINAL Differential Comment Blood Urea Nitrogen 10 MG/DL Creatinine 1.10 MG/DL Random Glucose 102 MG/DL Total Protein 7.8 GM/DL Albumin 3.7 GM/DL Calcium Level 9.1 MG/DL Alkaline Phosphatase 80 U/L Aspartate Amino Transf (AST/SGOT) 21 U/L Alanine Aminotransferase (ALT/SGPT) 28 U/L Total Bilirubin 0.7 MG/DL Sodium Level 138 MEQ/L Potassium Level 3.7 MEQ/L Chloride Level 104 MEQ/L Carbon Dioxide Level 26.5 MEQ/L Anion Gap 8 MEQ/L Estimat Glomerular Filtration Rate 76 ML/MIN Lipase 113 U/L Urine Color ORANGE Urine Turbidity CLEAR Urine pH 5.5 Urine Specific [place] GREATER/EQUAL 1.030 Urine Protein 30 mg/dL Urine Glucose (UA) NEG mg/dL Urine Ketones 15 mg/dL Urine Occult Blood NEG Urine Nitrite POS Urine Bilirubin NEG Urine Urobilinogen 0.2 MG/DL Urine Leukocyte Esterase TRACE Urine RBC 0-3 /hpf Urine WBC 9-14 /hpf Urine Squamous Epithelial Cells 0-5 /hpf Urine Bacteria MANY /hpf Microscopic Urinalysis Comment CULTURE INDICATED MDM Supervised Visit with ZOEY: No Interpretation(s) FINDINGS: Lower chest: No acute abnormality is identified. Hepatobiliary: Liver density is within normal limits. No lesion is seen on this noncontrast examination. No calcified gallstones are present. Kidneys: No hydronephrosis, stone, or mass. Adrenal Glands: Within normal limits. Spleen: Within normal limits. Pancreas: Within normal limits. Vascular: The aorta is nonaneurysmal. Bowel/Mesentery: Stomach and small bowel demonstrate no abnormality. There is sigmoid diverticulosis. Wall thickening and pericolic inflammation is present at the proximal sigmoid colon. No abscess or free air is present. There is trace free fluid in the pelvis. Abdominal Wall: No hernia is visualized. Retroperitoneum: No lymphadenopathy. Bladder: No wall thickening or mass. Reproductive: Within normal limits. Inguinal: No lymphadenopathy or hernia. Musculoskeletal: No acute osseous abnormality is identified. CONCLUSION: 1. The above findings are diagnostic of acute sigmoid diverticulitis involving the proximal sigmoid colon. The inflammatory changes have mildly increased since the prior study. There is trace free fluid in the pelvis. There is no free air or abscess. 2. No other acute finding is identified in the abdomen or pelvis. Narrative Course As patient is having persistent nausea and vomiting with worsening CT scan from prior, he will be admitted worsening diverticulitis and intractable nausea and vomiting. Diagnosis Primary Impression: Acute diverticulitis Additional Impression: Urinary tract infection Qualified Codes: N39.0 - Urinary tract infection, site not specified Admitting Information Admitting Physician Requests: Observation Condition: Stable Marci Malhotra MD Jul 16, 2017 19:34
[2017-07-16 19:35] LABS: TOTAL BILIRUBIN ADULT 0.7 MG/DL (0.2-1.0); TOTAL PROTEIN 7.8 GM/DL (6.4-8.2)
[2017-07-16 19:36] LABS: ALKALINE PHOSPHATASE 80 U/L (45-117)
[2017-07-16 19:40] LABS: BACTERIA, URINE MANY /hpf; RBC, URINE 0-3 /hpf (0-3); SQUAMOUS EPITHELIAL CELL URINE 0-5 /hpf (0-5)
[2017-07-16] MEDS ORDERED: PROCHLORPERAZINE INJ 10 MG/2 ML VIAL IV PUSH ONE (20:30)
[2017-07-16 21:05] VITALS: BP 167/96; PULSE 88; RESP 18; O2SAT 97
--- NOTE | 2017-07-16 21:07 | RADRPT ---
EXAM DATE: 07/16/2017 8:41 PM EDT AGE/SEX: 36 years / Male INDICATIONS: Left lower quadrant pain nausea vomiting history of diverticulitis CLINICAL DATA: This is the patient's initial encounter. Patient reports that signs and symptoms have been present for 1 week and indicates a pain score of 6/10. MEDICAL/SURGICAL HISTORY: Renal calculi. Diverticulitis. None. RADIATION DOSE: 22.12 CTDI (mGy) COMPARISON: [facility], CT ABDOMEN & PELVIS W/O CONTRAST, 07/10/2017. . TECHNIQUE: Multiple contiguous axial images were obtained through the abdomen. Images were obtained using multiple row detector helical technique. Using dose reduction techniques, radiation dose was ke pt as low as reasonably achievable to obtain optimal diagnostic quality images. FINDINGS: Lower chest: No acute abnormality is identified. Hepatobiliary: Liver density is within normal limits. No lesion is seen on this noncontrast examinati on. No calcified gallstones are present. Kidneys: No hydronephrosis, stone, or mass. Adrenal Glands: Within normal limits. Spleen: Within normal limits. Pancreas: Within normal limits. Vascular: The aorta is nonaneurysmal. Bowel/Mesentery: Stomach and small bowel demonstrate no abnormality. There is sigmoid diverticulosis. Wall thickening and pericolic inflammation is present at the proximal sigmoid colon. No abscess or f ree air is present. There is trace free fluid in the pelvis. Abdominal Wall: No hernia is visualized. Retroperitoneum: No lymphadenopathy. Bladder: No wall thickening or mass. Reproductive: Within normal limits. Inguinal: No lymphadenopathy or hernia. Musculoskeletal: No acute osseous abnormality is identified. CONCLUSION: 1. The above findings are diagnostic of acute sigmoid diverticulitis involving the proximal sigmoid colon. The inflammatory changes have mildly increased since the prior study. There is trace free flui d in the pelvis. There is no free air or abscess. 2. No other acute finding is identified in the abdomen or pelvis. Electronically signed by: Kapil Narvaez MD 07/16/2017 9:05 PM EDT
[2017-07-16 21:35] VITALS: BP 161/95; PULSE 78; RESP 18; TEMP 98; O2SAT 97
[2017-07-16] MEDS ORDERED: ACETAMINOPHEN 325 MG TAB PO PRN (21:45)
[2017-07-16] MEDS ORDERED: ONDANSETRON HCL 4 MG/2 ML VIAL IVP PRN (21:45)
[2017-07-16] MEDS ORDERED: PROCHLORPERAZINE INJ 10 MG/2 ML VIAL IM PRN (21:45)
[2017-07-16] MEDS ORDERED: SENNOSIDES 8.6 MG TAB PO PRN (21:45)
[2017-07-16] MEDS ORDERED: LACTULOSE SYRUP 20 GM/30 ML CUP PO PRN (21:45)
[2017-07-16] MEDS ORDERED: NALOXONE HCL 0.4 MG/ML AMP IV PUSH PRN (21:45)
[2017-07-16] MEDS ORDERED: BISACODYL 10 MG SUPP RECTAL PRN (21:45)
[2017-07-16] MEDS ORDERED: MAGNESIUM HYDROXIDE SUSP 30 ML CUP PO PRN (21:45)
[2017-07-16] MEDS ORDERED: CIPR-9 PO (22:15)
[2017-07-16] MEDS ORDERED: METR-1 PO (22:15)
[2017-07-16] MEDS ORDERED: ZOFR4TAB3 SL (22:15)
[2017-07-17] MEDS ORDERED: metroNIDAZOLE 500 MG INJ 100 ML IV SCH (02:00)
[2017-07-17] MEDS ORDERED: CIPROFLOXACIN 400 MG PREMIX 200 ML IV SCH (06:00)
[2017-07-17] MEDS ORDERED: DOCUSATE SODIUM 50 MG/SENNA 8.6 MG TAB PO SCH (09:00)
[2017-07-17] MEDS ORDERED: SODIUM CHLORIDE 0.9% FLUSH 10 ML FLUSH IV FLUSH SCH (09:00)
== END 2017-07-16 22:15 | disposition left against medical advice (07) ==
LOC: PHED 18:02 → PHEDA 21:45
PROVIDERS: ADMIT Family Medicine; ATTEND Family Medicine
DX: K57.32 Diverticulitis of large intestine without perforation or abscess without bleeding (principal); N39.0 Urinary tract infection, site not specified; R00.0 Tachycardia, unspecified; F12.90 Cannabis use, unspecified, uncomplicated
CPT/HCPCS: 74176; 80053; 81001; 83690; 85025; 87040; 87086; 96361; 96365; 96367; 96375; 99285; J0744; J0780; J1885; J2405; J7030